=== PATIENT | female | born 1965 | race African-American/Black ===

== ENCOUNTER 2017-08-23 19:04 | Emergency (ER) | payer MEDICARE, MEDICAID ==
[2017-08-23] MEDS ORDERED: ASPIRIN 81 MG TABLET, CHEWABLE PO ONE (19:56)
[2017-08-23] MEDS ORDERED: FAMOTIDINE 20 MG TABLET PO ONE (20:20)
[2017-08-23 20:25] LABS: ABSOLUTE BASOPHILS # (AUTO) 0.1 10^3/uL (0.0-0.2); ABSOLUTE EOSINOPHILS # (AUTO) 0.6 10^3/uL (0.0-0.6); ABSOLUTE LYMPHOCYTES (AUTO) 2.7 10^3/uL (0.5-4.7); ABSOLUTE MONOCYTES (AUTO) 0.5 10^3/uL (0.1-1.4); EOSINOPHILS % (AUTO) 7.6 % (0-6); HEMATOCRIT 36.9 % (36.0-47.0); HEMOGLOBIN 12.1 g/dL (12.0-15.5); HGB HCT DIFFERENCE -0.6; LYMPHOCYTES % (AUTO) 34.4 % (13-45); MEAN CORPUSCULAR HEMOGLOBIN 28.7 pg (27.0-33.4); MEAN CORPUSCULAR HGB CONC 32.8 g/dL (32.0-36.0); MEAN CORPUSCULAR VOLUME 88 fl (80-97); MONOCYTES % (AUTO) 6.6 % (3-13); RED BLOOD COUNT 4.21 10^6/uL (3.72-5.28); RED CELL DISTRIBUTION WIDTH 13.4 % (11.5-14.0); SEGMENTED NEUTROPHILS % (AUTO) 50.4 % (42-78)
--- NOTE | 2017-08-23 20:26 | ER Document Report ---
ED General - General Chief Complaint: Chest Pain > 30 Stated Complaint: CHEST PAIN Time Seen by Provider: 08/23/17 19:51 Notes: Patient is a 52-year-old female that comes emergency department with several complaints. First complaint is pain in the center of her chest extending down to her left upper abdomen, intermittent, sharp, started yesterday. She denies that this is worse with food, she does report intermittent nausea, she states it also feels worse with deep breaths. She denies trauma, fever, cough, history of the same. She also states that her left leg has been swollen for the past several months, this has not been evaluated previously. She denies injury to the area previously. Past medical history of hypertension, she takes propanolol for an arrhythmia, she denies history of [place] or blood clot, she does not smoke or drink alcohol, she states she had a negative stress test to go. Her mother does have a history of blood clots. TRAVEL OUTSIDE OF THE [place] IN LAST 30 DAYS: No - Related Data Allergies/Adverse Reactions: enalapril [Enalapril] Allergy (Severe, Verified 10/31/15 10:52) swelling Past Medical History - General Information source: Patient - Social History Smoking Status: Never Smoker Frequency of alcohol use: None Drug Abuse: None Lives with: Family Family History: Reviewed & Not Pertinent Patient has suicidal ideation: No Patient has homicidal ideation: No - Past Medical History Cardiac Medical History: Reports: Hx Hypercholesterolemia, Hx Hypertension - on meds Denies: Hx Coronary Artery Disease, Hx Heart Attack Pulmonary Medical History: Reports: Hx COPD - hypersensitive pneumonitis/ inhalers Denies: Hx Asthma, Hx Bronchitis, Hx Pneumonia Neurological Medical History: Denies: Hx Cerebrovascular Accident, Hx Seizures Renal/ Medical History: Denies: Hx Peritoneal Dialysis Musculoskeltal Medical History: Denies Hx Arthritis Past Surgical History: Reports: Hx Oral Surgery - wisdom teeth, Hx Tubal Ligation - Immunizations Hx Diphtheria, Pertussis, Tetanus Vaccination: No Hx Pneumococcal Vaccination: 07/20/14 Review of Systems - Review of Systems Constitutional: No symptoms reported EENT: No symptoms reported Cardiovascular: See HPI Respiratory: See HPI Gastrointestinal: See HPI Genitourinary: No symptoms reported Female Genitourinary: No symptoms reported Musculoskeletal: No symptoms reported Skin: No symptoms reported Hematologic/Lymphatic: No symptoms reported Neurological/Psychological: No symptoms reported Physical Exam - Vital signs Vitals: Temp Pulse Resp BP Pulse Ox 98.5 F 82 16 157/91 H 97 08/23/17 19:20 08/23/17 19:20 08/23/17 19:20 08/23/17 19:20 08/23/17 19:20 Interpretation: Normal - General General appearance: Appears well, Alert In distress: None - HEENT Head: Normocephalic, Atraumatic Eyes: Normal Pupils: PERRL - Respiratory Respiratory status: No respiratory distress Chest status: Nontender Breath sounds: Normal Chest palpation: Normal - Cardiovascular Rhythm: Regular. No: Tachycardia Heart sounds: Normal auscultation, S1 appreciated, S2 appreciated Murmur: No - Abdominal Inspection: Normal Distension: No distension Bowel sounds: Normal Tenderness: Tender - Left upper quadrant pain on exam, reproducible, no severe tenderness, rigidity, or guarding. Organomegaly: No organomegaly - Back Back: Normal, Nontender. No: Tender - Extremities General upper extremity: Normal inspection, Nontender, Normal color, Normal ROM , Normal temperature General lower extremity: Normal inspection, Nontender, Normal color, Normal ROM , Normal temperature, Normal weight bearing. No: Nikhil's sign - Neurological Neuro grossly intact: Yes Cognition: Normal Orientation: AAOx4 Bullock Coma Scale Eye Opening: Spontaneous John Paul Coma Scale Verbal: Oriented Bullock Coma Scale Motor: Obeys Commands Bullock Coma Scale Total: 15 Speech: Normal Motor strength normal: LUE, RUE, LLE, RLE Sensory: Normal - Psychological Associated symptoms: Normal affect, Normal mood - Skin Skin Temperature: Warm Skin Moisture: Dry Skin Color: Normal Course - Re-evaluation Re-evalutation: Patient has left upper quadrant pain on examination. She is well-appearing, alert, clear lungs, soft abdomen otherwise. She does have mild lower extremity swelling in the left leg with good pulses and normal exam otherwise. Doppler was performed, shows no DVT or other abnormality on initial report. EKG showing left bundle branch block which is unchanged from prior, no acute changes. Chest x-ray unremarkable, CBC, chemistry, cardiac enzymes cycled and unremarkable. Patient is requesting to leave. Her heart score is 3. D-dimer is not elevated. Discussed workup in detail with patient. Based on her examination I actually feel this is gastrointestinal in nature. Patient states that she is taking 800 mg of ibuprofen twice a day for general body aches. Recommended she stop this, providing antacid therapy, patient states she will follow-up very closely with primary care for additional evaluation (in regards to both gastrointestinal and chest symptoms), states she will return if she develops chest pain, shortness of breath, or any other worsening symptoms. She is currently asymptomatic. Patient discharged home with family. - Vital Signs Vital signs: Temp Pulse Resp BP Pulse Ox 98.5 F 82 20 149/99 H 99 08/23/17 19:20 08/23/17 19:20 08/24/17 01:01 08/24/17 01:01 08/24/17 01:01 - Laboratory Result Diagrams: 08/23/17 20:03 08/23/17 20:03 Laboratory results interpreted by me: 08/23/17 20:03 Eosinophils % 7.6 H Discharge - Discharge Clinical Impression: Left upper quadrant pain Chest pain Qualifiers: Chest pain type: unspecified Qualified Code(s): R07.9 - Chest pain, unspecified Condition: Stable Disposition: HOME, SELF-CARE Additional Instructions: Your workup today does not show any concerning findings. Your symptoms and examination are very suggestive of a gastrointestinal source. I recommend avoiding taking any NSAIDs such as ibuprofen until symptoms completely resolved , take prescribed medications as directed, avoid spicy food, avoid high levels of caffeine. Follow-up closely with your primary care provider for additional evaluation and management. Return immediately if you worsen in anyway including vomiting, vomiting blood, black stools, difficulty breathing, worsening pain, or any other concerning symptoms. Prescriptions: Famotidine [Pepcid 20 mg Tablet] 20 mg PO BID #14 tablet Sucralfate [Carafate 1 gm Tablet] 1 gm PO QID #20 tablet Referrals: ANAIS CHAIDEZ MD [Primary Care Provider] - Follow up as needed
--- NOTE | 2017-08-23 20:37 | RADIOLOGY REPORT (SQ) ---
EXAM DESCRIPTION: CHEST SINGLE VIEW COMPLETED DATE/TIME: 08/23/2017 8:30 pm REASON FOR STUDY: pleuritic chest pain COMPARISON: None. NUMBER OF VIEWS: One view. TECHNIQUE: Single frontal radiographic view of the chest acquired. LIMITATIONS: None. FINDINGS: LUNGS AND PLEURA: No opacities, masses or pneumothorax. No pleural effusion. MEDIASTINUM AND HILAR STRUCTURES: No masses. Contour normal. HEART AND VASCULAR STRUCTURES: Heart enlarged without failure. Normal vasculature. BONES: No acute findings. HARDWARE: None in the chest. OTHER: No other significant finding. IMPRESSION: HEART ENLARGED WITHOUT FAILURE. NO OTHER SIGNIFICANT RADIOGRAPHIC FINDING IN THE CHEST. TECHNICAL DOCUMENTATION: JOB ID: [id number] [employer]- All Rights Reserved
[2017-08-23 20:49] LABS: ALANINE AMINOTRANSFERASE 33 U/L (9-52); ALBUMIN 3.8 g/dL (3.5-5.0); ALKALINE PHOSPHATASE 110 U/L (38-126); ANION GAP 11 (5-19); ASPARTATE AMINO TRANSFERASE 22 U/L (14-36); BILIRUBIN,DIRECT 0.4 mg/dL (0.0-0.4); BILIRUBIN,TOTAL 0.5 mg/dL (0.2-1.3); BLOOD UREA NITROGEN 12 mg/dL (7-20); CALCIUM 9.3 mg/dL (8.4-10.2); CARBON DIOXIDE 28 mmol/L (22-30); CHLORIDE 105 mmol/L (98-107); CREATINE KINASE 69 U/L (30-135); CREATININE RESULT 0.86 mg/dL (0.52-1.25); GLUCOSE 95 mg/dL (75-110); POTASSIUM 4.2 mmol/L (3.6-5.0); SODIUM 143.5 mmol/L (137-145); TOTAL PROTEIN 7.2 g/dL (6.3-8.2)
--- NOTE | 2017-08-23 20:49 | ER Document Report ---
ED Medical Screen (RME) - General Mode of Arrival: Ambulatory Information source: Patient TRAVEL OUTSIDE OF THE [place] IN LAST 30 DAYS: No <SIOBHAN HALL - Last Filed: 08/23/17 20:39> <SAGRARIO HICKS - Last Filed: 08/23/17 20:54> - General Chief Complaint: Chest Pain > 30 Stated Complaint: CHEST PAIN Time Seen by Provider: 08/23/17 19:51 Notes: Patient is a 52 year old female with a history of a decreased dejection fraction presents to the emergency department complaining of chest pain onset yesterday. Patient describes the pain as as stabbing that is exacerbated during deep breathing. Patient has associated symptoms of nausea and pain in the back of her neck onset tonight. Patient denies vomiting, cough, or shortness of breath. (SIOBHAN HALL) - Related Data Allergies/Adverse Reactions: enalapril [Enalapril] Allergy (Severe, Verified 10/31/15 10:52) swelling Past Medical History - General Information source: Patient - Social History Cigarette use (# per day): No Chew tobacco use (# tins/day): No Frequency of alcohol use: None Drug Abuse: None - Past Medical History Cardiac Medical History: Reports: Hx Hypercholesterolemia, Hx Hypertension - on meds Denies: Hx Coronary Artery Disease, Hx Heart Attack Pulmonary Medical History: Reports: Hx COPD - hypersensitive pneumonitis/ inhalers Denies: Hx Asthma, Hx Bronchitis, Hx Pneumonia Neurological Medical History: Denies: Hx Cerebrovascular Accident, Hx Seizures Renal/ Medical History: Denies: Hx Peritoneal Dialysis Musculoskeltal Medical History: Denies Hx Arthritis Past Surgical History: Reports: Hx Oral Surgery - wisdom teeth, Hx Tubal Ligation - Immunizations Hx Diphtheria, Pertussis, Tetanus Vaccination: No <SIOBHAN HALL - Last Filed: 08/23/17 20:39> Review of Systems - Review of Systems Constitutional: No symptoms reported EENT: No symptoms reported Cardiovascular: See HPI, Chest pain Respiratory: No symptoms reported Gastrointestinal: See HPI, Nausea Genitourinary: No symptoms reported Female Genitourinary: No symptoms reported Musculoskeletal: See HPI, Neck pain Skin: No symptoms reported Hematologic/Lymphatic: No symptoms reported Neurological/Psychological: No symptoms reported -: Yes All other systems reviewed and negative <SIOBHAN HALL - Last Filed: 08/23/17 20:39> Physical Exam - General General appearance: Appears well, Alert In distress: None - HEENT Head: Normocephalic, Atraumatic Pupils: PERRL - Respiratory Respiratory status: No respiratory distress Chest status: Nontender Breath sounds: Normal - Cardiovascular Rhythm: Regular Heart sounds: Normal auscultation Murmur: No Friction rub: No Gallop: None auscultated - Extremities General upper extremity: Normal ROM General lower extremity: Normal ROM - Psychological Associated symptoms: Normal affect, Normal mood - Skin Skin Temperature: Warm Skin Moisture: Dry <SIOBHAN HALL - Last Filed: 08/23/17 20:39> - Vital signs Vitals: Temp Pulse Resp BP Pulse Ox 98.5 F 82 16 157/91 H 97 08/23/17 19:20 08/23/17 19:20 08/23/17 19:20 08/23/17 19:20 08/23/17 19:20 Course - Laboratory Result Diagrams: 08/23/17 20:03 08/23/17 20:03 <SIOBHAN HALL - Last Filed: 08/23/17 20:39> - Laboratory Result Diagrams: 08/23/17 20:03 08/23/17 20:03 <SAGRARIO HICKS - Last Filed: 08/23/17 20:54> - Vital Signs Vital signs: Temp Pulse Resp BP Pulse Ox 98.5 F 82 16 157/91 H 97 08/23/17 19:20 08/23/17 19:20 08/23/17 19:20 08/23/17 19:20 08/23/17 19:20 - Laboratory Laboratory results interpreted by me: 08/23/17 20:03 Eosinophils % 7.6 H Doctor's Discharge <SIOBHAN HALL - Last Filed: 08/23/17 20:39> <SAGRARIO HICKS - Last Filed: 08/23/17 20:54> - Discharge Referrals: ANAIS CHAIDEZ MD [Primary Care Provider] - Follow up as needed Scribe Documentation - Scribe Written by Scribe:: Lucia Stafford, 08/23/2017 19:52 acting as scribe for :: Russell <SIOBHAN HALL - Last Filed: 08/23/17 20:39>
[2017-08-23 20:57] LABS: CREATINE KINASE MB 0.68 ng/mL (<4.55)
[2017-08-23 20:58] LABS: TROPONIN I < 0.012 ng/mL
[2017-08-23] MEDS ORDERED: ONDANSETRON HCL INJ/PF 4 MG/2 ML SDV IV ONE (22:42)
[2017-08-23] MEDS ORDERED: MORPHINE SULFATE 10 MG/ML INJ IV ONE (22:42)
--- NOTE | 2017-08-23 22:48 | EKG REPORT ---
SEVERITY:- ABNORMAL ECG - SINUS RHYTHM LEFT BUNDLE BRANCH BLOCK : Confirmed by: Jay Burkett 23-Aug-2017 22:47:01
[2017-08-24] MEDS ORDERED: HYDROCODONE/ACETAMINOPHEN 5-325 MG 6 TAB/DSPK PO PRN (01:08)
[2017-08-24] MEDS ORDERED: SUCRALFATE 1 GM TABLET PO ONE (01:08)
[2017-08-24 01:40] VITALS: BP 149/99
--- NOTE | 2017-08-24 08:35 | XCELERA REPORT ---
[address] [address] Lower Extremity Venous Evaluation Name: REJI CELIS Age: 52 yrs Gender: Female : 1965 Patient Status: Emergency Patient Location: ER Study Date: 08/23/2017 09:54 PM Procedure: Color flow and duplex imaging of the veins of the left lower extremity as well as the right Common Femoral vein. Reason For Study: LLE swelling Ordering Physician: SHAYE MALONE Performed By: Laquita Mcfadden Right Sided Venous Evaluation The right common femoral vein is fully compressible. Spontaneous and phasic flow is present in the right common femoral vein. Left Sided Venous Evaluation Normal vessel filling wall to wall, compression and augmentation as well as Colour flow down to the infrageniculate veins. Interpretation Summary No duplex evidence of DVT or obstruction in the left lower extremity nor in the right Common Femoral vein. : SHAYE MALONE > Aiden Tenorio
== END 2017-08-24 01:40 | disposition home or self-care (01) ==
LOC: ER 19:04
DX: R10.12 Left upper quadrant pain (principal); R07.9 Chest pain, unspecified; R11.0 Nausea; M54.2 Cervicalgia
CPT/HCPCS: 93005; 99285; 96374; 96375; 36415; 82553; 82550; 83690; 85025; 80053; 84484; 85379; 93971 ×2; 71010; 93010; A9270 ×4; J2270; J2405

== ENCOUNTER 2018-02-22 09:44 | Observation (INO) | payer MEDICARE, MEDICAID ==
[2018-02-22] MEDS ORDERED: ASPIRIN 81 MG TABLET, CHEWABLE PO ONE (10:09)
--- NOTE | 2018-02-22 10:14 | ER Document Report ---
ED Medical Screen (RME) - General Chief Complaint: Chest Tightness Stated Complaint: CHEST TIGHTNESS Time Seen by Provider: 02/22/18 10:02 Notes: 52-year-old hypertensive female presents emergency department complaining of chest tightness since this morning and left arm tingling since last evening associated with a right-sided headache and neck pain for the past 3 weeks. Father of cardiac disease and mother had her first stroke in her late 40s early 50s. Patient has a history of SVT. TRAVEL OUTSIDE OF THE [place] IN LAST 30 DAYS: No - Related Data Allergies/Adverse Reactions: enalapril [Enalapril] Allergy (Severe, Verified 02/22/18 10:01) swelling Past Medical History - General Information source: Patient - Social History Cigarette use (# per day): No Chew tobacco use (# tins/day): No Frequency of alcohol use: None Drug Abuse: None Family history: CAD, CVA - Past Medical History Cardiac Medical History: Reports: Hx Hypercholesterolemia, Hx Hypertension - on meds Denies: Hx Coronary Artery Disease, Hx Heart Attack Pulmonary Medical History: Reports: Hx COPD - hypersensitive pneumonitis/ inhalers Denies: Hx Asthma, Hx Bronchitis, Hx Pneumonia Neurological Medical History: Denies: Hx Cerebrovascular Accident, Hx Seizures Renal/ Medical History: Denies: Hx Peritoneal Dialysis Musculoskeltal Medical History: Denies Hx Arthritis Past Surgical History: Reports: Hx Oral Surgery - wisdom teeth, Hx Tubal Ligation - Immunizations Hx Diphtheria, Pertussis, Tetanus Vaccination: No Review of Systems - Review of Systems Constitutional: No symptoms reported EENT: No symptoms reported Cardiovascular: See HPI - Chest tightness Respiratory: See HPI, Short of breath Gastrointestinal: See HPI - Patient feels like her chest tightness would be better if she could just burp. Musculoskeletal: See HPI - Left arm tingling. Neurological/Psychological: See HPI Physical Exam - Vital signs Vitals: Temp Pulse Resp BP Pulse Ox 98.1 F 77 18 145/86 H 95 02/22/18 09:54 02/22/18 09:54 02/22/18 09:54 02/22/18 09:54 02/22/18 09:54 Interpretation: Hypertensive - General General appearance: Appears well, Alert Notes: Obese - HEENT Head: Normocephalic, Atraumatic - Respiratory Respiratory status: No respiratory distress Chest status: Nontender Breath sounds: Normal Chest palpation: Normal - Cardiovascular Rhythm: Regular Heart sounds: Normal auscultation Murmur: No Course - Vital Signs Vital signs: Temp Pulse Resp BP Pulse Ox 98.1 F 77 18 145/86 H 95 02/22/18 09:54 02/22/18 09:54 02/22/18 09:54 02/22/18 09:54 02/22/18 09:54
[2018-02-22] MEDS: NITROGLYCERIN 0.4 MG/TAB 25 TAB/BOTTLE SL PRN ×2 (10:33→10:45)
[2018-02-22] MEDS ORDERED: ACETAMINOPHEN 325 MG TABLET PO ONE ×2 (10:38→16:51)
--- NOTE | 2018-02-22 10:42 | ER Document Report ---
ED Cardiac - General Chief Complaint: Chest Tightness Stated Complaint: CHEST TIGHTNESS Time Seen by Provider: 02/22/18 10:02 Mode of Arrival: Ambulatory Information source: Patient Notes: This is a 52-year-old female with a history of SVT, hypertension who presents to the emergency room with retrosternal chest pressure radiating down the left arm. She states she did not feel well yesterday and started having the tightness this morning. She does report slight headache but nothing out of the ordinary for her. She denies shortness of breath. TRAVEL OUTSIDE OF THE [place] IN LAST 30 DAYS: No - HPI Patient complains to provider of: Chest tightness Use of: denies: Alcohol, Amphetamines, Bath salts, Caffeine, Cocaine, Decongestants, Other Was the onset of pain: Gradual Is the pain a: New problem Chest pain location: Substernal Chest pain radiation location: Left arm Severity now: Mild Severity at worst: Moderate Pain level currently: 1 Chest pain precipitating factors: At Rest Cardiac risk factors: Hypertension, + Family history Positive cardiac history: Yes Associated symptoms: denies: Back pain, Hypotension, Jaw pain, Lightheaded Exacerbated by: Denies Relieved by: Nothing Similar symptoms previously: No Recently seen / treated by doctor: No - Related Data Allergies/Adverse Reactions: enalapril [Enalapril] Allergy (Severe, Verified 02/22/18 10:01) swelling Past Medical History - General Information source: Patient - Social History Smoking Status: Never Smoker Cigarette use (# per day): No Chew tobacco use (# tins/day): No Frequency of alcohol use: None Drug Abuse: None Lives with: Family Family History: CAD Patient has suicidal ideation: No Patient has homicidal ideation: No - Past Medical History Cardiac Medical History: Reports: Hx Hypercholesterolemia, Hx Hypertension - on meds Denies: Hx Coronary Artery Disease, Hx Heart Attack Pulmonary Medical History: Reports: Hx COPD - hypersensitive pneumonitis/ inhalers Denies: Hx Asthma, Hx Bronchitis, Hx Pneumonia Neurological Medical History: Denies: Hx Cerebrovascular Accident, Hx Seizures Renal/ Medical History: Denies: Hx Peritoneal Dialysis Musculoskeltal Medical History: Denies Hx Arthritis Past Surgical History: Reports: Hx Oral Surgery - wisdom teeth, Hx Tubal Ligation - Immunizations Hx Diphtheria, Pertussis, Tetanus Vaccination: No Hx Pneumococcal Vaccination: 07/20/14 Review of Systems - Review of Systems Constitutional: No symptoms reported EENT: No symptoms reported Cardiovascular: See HPI Respiratory: No symptoms reported Gastrointestinal: No symptoms reported Genitourinary: No symptoms reported Female Genitourinary: No symptoms reported Musculoskeletal: No symptoms reported Skin: No symptoms reported Hematologic/Lymphatic: No symptoms reported Neurological/Psychological: Headaches Physical Exam - Vital signs Vitals: Temp Pulse Resp BP Pulse Ox 98.1 F 77 18 145/86 H 95 02/22/18 09:54 02/22/18 09:54 02/22/18 09:54 02/22/18 09:54 02/22/18 09:54 Notes: Physical exam: GENERAL: 52-year-old female, alert and oriented 3, no acute distress HEAD: Atraumatic, normocephalic. EYES: Pupils equal round and reactive to light, extraocular movements intact, sclera anicteric, conjunctiva are normal. ENT: TMs normal, nares patent, oropharynx clear without exudates. Moist mucous membranes. NECK: Normal range of motion, supple without obvious mass or JVD. LUNGS: Breath sounds clear to auscultation bilaterally and equal. No wheezes rales or rhonchi. HEART: Regular rate and rhythm without murmurs, rubs or gallops. ABDOMEN: Soft, normoactive bowel sounds. No tenderness to palpation. No guarding, no rebound. No masses appreciated. EXTREMITIES: Normal range of motion, no pitting or edema. No clubbing or cyanosis. NEUROLOGICAL: Cranial nerves II through XII grossly intact. Normal speech, moving all extremities. PSYCH: Normal mood, normal affect. SKIN: Warm, Dry, normal turgor, no rashes or lesions noted. Course - Re-evaluation Re-evalutation: 02/22/18 12:03 Note: Patient currently denies any chest pain. She had noted that over the last several days there was swelling more in the left lower extremity so a lower extremity Doppler was done and shows no evidence of DVT. Her first set of enzymes are negative. - Vital Signs Vital signs: Temp Pulse Resp BP Pulse Ox 98.1 F 77 18 145/86 H 95 02/22/18 09:54 02/22/18 09:54 02/22/18 09:54 02/22/18 09:54 02/22/18 09:54 - Laboratory Result Diagrams: 02/22/18 10:15 02/22/18 10:15 Laboratory results interpreted by me: 02/22/18 02/22/18 10:15 10:15 Eosinophils % 8.7 H Sodium 145.3 H - Diagnostic Test Radiology reviewed: Image reviewed, Reports reviewed - Chest x-ray shows cardiomegaly - EKG Interpretation by Me Rhythm: NSR - EKG shows normal sinus rhythm with a ventricular rate of 79. 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 The patient does have a history of a left bundle branch block and there is no significant changes in the EKG compared to August 23, 2017. Discharge - Discharge Clinical Impression: Chest pain Condition: Stable Disposition: ADMITTED OBSERVATION Admitting Provider: Hospitalist - Dr Maricruz Horan Unit Admitted: Telemetry Referrals: ANAIS CHAIDEZ MD [Primary Care Provider] - Follow up as needed
[2018-02-22 10:51] LABS: ABSOLUTE EOSINOPHILS # (AUTO) 0.5 10^3/uL (0.0-0.6); ABSOLUTE LYMPHOCYTES (AUTO) 1.9 10^3/uL (0.5-4.7); ABSOLUTE MONOCYTES (AUTO) 0.5 10^3/uL (0.1-1.4); ABSOLUTE NEUT (AUTO) 3.2 10^3/uL (1.7-8.2); BASOPHILS % (AUTO) 0.8 % (0-2); EOSINOPHILS % (AUTO) 8.7 % (0-6); HEMATOCRIT 37.5 % (36.0-47.0); HEMOGLOBIN 12.2 g/dL (12.0-15.5); MEAN CORPUSCULAR HEMOGLOBIN 28.6 pg (27.0-33.4); MEAN CORPUSCULAR HGB CONC 32.5 g/dL (32.0-36.0); MEAN CORPUSCULAR VOLUME 88 fl (80-97); MONOCYTES % (AUTO) 7.7 % (3-13); PLATELET COUNT 306 10^3/uL (150-450); RED BLOOD COUNT 4.27 10^6/uL (3.72-5.28); RED CELL DISTRIBUTION WIDTH 13.3 % (11.5-14.0); SEGMENTED NEUTROPHILS % (AUTO) 51.8 % (42-78); TOTAL CELLS COUNTED % (AUTO) 100 %; WHITE BLOOD COUNT 6.1 10^3/uL (4.0-10.5)
[2018-02-22 11:08] LABS: ALANINE AMINOTRANSFERASE 21 U/L (9-52); ALBUMIN 3.7 g/dL (3.5-5.0); ALKALINE PHOSPHATASE 106 U/L (38-126); ANION GAP 12 (5-19); ASPARTATE AMINO TRANSFERASE 23 U/L (14-36); BILIRUBIN,DIRECT 0.3 mg/dL (0.0-0.4); BILIRUBIN,TOTAL 0.4 mg/dL (0.2-1.3); BLOOD UREA NITROGEN 13 mg/dL (7-20); CALCIUM 9.5 mg/dL (8.4-10.2); CARBON DIOXIDE 29 mmol/L (22-30); CHLORIDE 104 mmol/L (98-107); CREATINE KINASE 73 U/L (30-135); GLUCOSE 100 mg/dL (75-110); POTASSIUM 4.5 mmol/L (3.6-5.0); SODIUM 145.3 mmol/L (137-145); TOTAL PROTEIN 7.2 g/dL (6.3-8.2)
[2018-02-22 11:18] LABS: CREATINE KINASE MB 0.68 ng/mL (<4.55)
[2018-02-22 11:26] LABS: TROPONIN I < 0.012 ng/mL
--- NOTE | 2018-02-22 11:27 | RADIOLOGY REPORT (SQ) ---
EXAM DESCRIPTION: CHEST SINGLE VIEW COMPLETED DATE/TIME: 02/22/2018 11:13 am REASON FOR STUDY: chest tightness COMPARISON: 08/23/2017. NUMBER OF VIEWS: One view. TECHNIQUE: Single frontal radiographic view of the chest acquired. LIMITATIONS: None. FINDINGS: LUNGS AND PLEURA: No opacities, masses or pneumothorax. No pleural effusion. MEDIASTINUM AND HILAR STRUCTURES: No masses. Contour normal. HEART AND VASCULAR STRUCTURES: Heart enlarged without failure. Normal vasculature. BONES: No acute findings. HARDWARE: None in the chest. OTHER: No other significant finding. IMPRESSION: HEART ENLARGED WITHOUT FAILURE. NO OTHER SIGNIFICANT RADIOGRAPHIC FINDING IN THE CHEST. TECHNICAL DOCUMENTATION: JOB ID: [id number] [employer]- All Rights Reserved Reading location - IP/workstation name: [email or web address]
[2018-02-22] MEDS ORDERED: MORPHINE SULFATE 10 MG/ML INJ IV ONE (11:59)
[2018-02-22] MEDS ORDERED: ONDANSETRON HCL INJ/PF 4 MG/2 ML SDV IV ONE (11:59)
[2018-02-22] MEDS ORDERED: NITROGLYCERIN 2% OINTMENT 1 GM PACKET TP ONE (12:02)
--- NOTE | 2018-02-22 13:08 | XCELERA REPORT ---
[address] [address] Lower Extremity Venous Evaluation Name: REJI MARTIN Age: 52 yrs Gender: Female : 1965 Patient Status: Emergency Patient Location: ER Study Date: 02/22/2018 11:16 AM Procedure: Color flow and duplex imaging of the veins of the left lower extremity as well as the right Common Femoral vein. Reason For Study: lle swelling Ordering Physician: KARAN ROMERO Performed By: Eric Daniels Right Sided Venous Evaluation The right common femoral vein is fully compressible. Spontaneous and phasic flow is present in the right common femoral vein. Left Sided Venous Evaluation Normal vessel filling wall to wall, compression and augmentation as well as Colour flow down to the infrageniculate veins. Interpretation Summary No duplex evidence of DVT or obstruction in the left lower extremity nor in the right Common Femoral vein. : KARAN ROMERO [place]
[2018-02-22] MEDS ORDERED: ALBUTEROL SULFATE HFA (90 MCG/PUFF) 8 GM MDI (1 MDI/ER DISP) IH PRN (13:26)
[2018-02-22] MEDS ORDERED: ALBUTEROL SULFATE HFA (90 MCG/PUFF) 200 PUFF/8.5 GM MDI IH PRN (13:58)
[2018-02-22] MEDS: HYDRALAZINE HCL 25 MG TABLET PO SCH ×2 (16:54→22:40)
[2018-02-22] MEDS: ONDANSETRON 4 MG TAB.RAPDIS PO PRN ×2 (16:56→22:14)
--- NOTE | 2018-02-22 17:28 | PDOC H&P ---
History of Present Illness Admission Date/PCP: 02/22/18 12:40 ANAIS CHAIDEZ MD History of Present Illness: REJI MARTIN is a 52 year old female who presents with a ~ 2hr complaint of chest tightness and LUE tingling. The patient states that her tightness was located in the middle of her chest, was constant in nature. She experienced an associated PARTIDA and blurry vision at the time of the event, and attempted to " make herself belch" in order to try and relieve symptoms. The patient was BIBA and given 2 SL Nitroglycerin tablets, which relieved her chest pain. She was also given 325mg ASA. Her EKG showed a LBBB, which is not new when compared to an EKG from 2017. Her initial troponin was < 0.012. Following the administration of the SL nitroglycerin the patient complained of a 5/5 headache , for which she was given 975 mg tylenol. Her VS upon arrival were relatively normal BP 145/86 P 77 T 98.1 RR 17 SPO2 95% on room air. PMH includes HTN, CHF, migraines, hypersensitive pneumonitis SOFTWARE QUALITY MANAGER: Dr. Knapp ([facility]) FITNESS SUPERVISOR: Dr. Carmen ([facility]) PMD: [facility] Upon assessment the patient is resting comfortably in bed on room air. She denied chest pain or tightness, shortness of breath, dizziness, PARTIDA, or nausea. Her lungs were clear to auscultation. +S1 S2. Pitting edema (+1) to bilateral lower extremities, which the patient states is chronic. She states that her edema is "better than usual." Additionally, the patient states she was diagnosed with heart failure approximately 2 months ago but her last ECHOcardiogram was "years ago." Past Medical History Cardiac Medical History: Reports: Congestive Heart Failure, Hyperlipidema, Hypertension - on meds Denies: Coronary Artery Disease, Myocardial Infarction Pulmonary Medical History: Reports: Chronic Obstructive Pulmonary Disease (COPD ) - hypersensitive pneumonitis/inhalers Denies: Asthma, Bronchitis, Pneumonia Neurological Medical History: Reports: Migraine Denies: Seizures Musculoskeltal Medical History: Denies: Arthritis Hematology: Reports: Anemia - hx of Past Surgical History Past Surgical History: Reports: Tubal Ligation, Other - OPEN LUNG BIOPSY Social History Information Source: Patient Lives with: Family Smoking Status: Never Smoker Frequency of Alcohol Use: None Hx Recreational Drug Use: No Drugs: None Hx Prescription Drug Abuse: No - Advance Directive Resuscitation Status: Full Code Family History Family History: CAD, CVA, DM Parental Family History Reviewed: Yes Children Family History Reviewed: Yes Sibling(s) Family History Reviewed.: Yes Medication/Allergy Home Medications: Budesonide/Formoterol Fumarate [Symbicort Hfa 160-4.5 Mcg Inhaler 6 gm] 1 puff IH DAILY 10/31/15 Albuterol Sulfate [Ventolin HFA MDI 18 GM] 2 puff IH Q4HP PRN 02/22/18 Ergocalciferol (Vitamin D2) [Drisdol 50,000 Unit (1.25MG) Capsule] 50,000 unit PO MO@1000 02/22/18 Furosemide [Furosemide] 80 mg PO DAILY 02/22/18 Hydralazine HCl [Apresoline 25 mg Tablet] 25 mg PO Q8 02/22/18 Ibuprofen [Motrin 800 mg Tablet] 800 mg PO Q8HP PRN 02/22/18 Propafenone HCl [Rythmol 150 Mg Tablet] 150 mg PO DAILY 02/22/18 Allergies/Adverse Reactions: enalapril [Enalapril] Allergy (Severe, Verified 02/22/18 10:01) swelling Review of Systems All systems: reviewed and no additional remarkable complaints except as stated Physical Exam Vital Signs: Temp Pulse Resp BP Pulse Ox 98.1 F 68 16 139/85 H 99 02/22/18 13:34 02/22/18 13:34 02/22/18 13:34 02/22/18 13:34 02/22/18 13:34 Intake & Output 02/21/18 02/22/18 02/23/18 06:59 06:59 06:59 Intake Total 3 Balance 3 Weight 129.1 kg General appearance: PRESENT: no acute distress Eye exam: PRESENT: conjunctiva pink, PERRLA Mouth exam: PRESENT: moist Neck exam: PRESENT: full ROM Respiratory exam: PRESENT: clear to auscultation dennys, symmetrical, unlabored Cardiovascular exam: PRESENT: +S1, +S2, other - LBBB - CHRONIC Pulses: PRESENT: normal radial pulses, normal dorsalis pedis pul Vascular exam: PRESENT: normal capillary refill GI/Abdominal exam: PRESENT: ascites Rectal exam: PRESENT: deferred Extremities exam: PRESENT: full ROM, pedal edema, +1 edema - BILATERAL LOWER EXTREMITIES Musculoskeletal exam: PRESENT: ambulatory, full ROM Neurological exam: PRESENT: alert, awake, oriented to person, oriented to place , oriented to time, oriented to situation Psychiatric exam: PRESENT: appropriate affect Skin exam: PRESENT: dry, intact, normal color Results Laboratory Results: 02/22/18 15:40 Troponin I 0.270 Impressions: Chest X-Ray 02/22/18 10:12 IMPRESSION: HEART ENLARGED WITHOUT FAILURE. NO OTHER SIGNIFICANT RADIOGRAPHIC FINDING IN THE CHEST. Status: Imported from PACS Assessment & Plan - Diagnosis (1) Chest pain Qualifiers: Chest pain type: unspecified Qualified Code(s): R07.9 - Chest pain, unspecified Is this a current diagnosis for this admission?: Yes Plan: Acute onset of chest tightness and tingling in LUE BIBA and administered 2 SL Nitro tablets, symptoms relieved after medication administration Concerning for cardiac chest pain, cardiology consulted Initial troponin < 0.012 continue to trend x 2 Daily ASA 81mg PO Initiate statin therapy Daily EKGs Chest xray shows cardiomegaly, no other pertinent pathology Consider non-cardiac causes of chest pain: anxiety, GERD, muscle pain (2) HTN (hypertension) Qualifiers: Hypertension type: unspecified Qualified Code(s): I10 - Essential (primary ) hypertension Is this a current diagnosis for this admission?: Yes Plan: Patient endorses a history of HTN Resume home dose of amlodipine Patient has remained relatively NORMOtensive while at [facility] (3) CHF (congestive heart failure) Qualifiers: Heart failure chronicity: chronic Is this a current diagnosis for this admission?: Yes Plan: Patient states she was recently diagnosed with CHF "as a result of her leg edema." The patient states her last ECHO was "years ago" +1 pitting edema in bilateral lower extremities The patient denied recent weight gain, states that the swelling in her legs is "better than usual" Continue home dose lasix If patient continues to be asymptomatic, will plan for outpatient ECHO. If the patient becomes symptomatic again, will plan for inpatient ECHO Aspirin and statin therapy (4) Headache Qualifiers: Headache chronicity pattern: acute headache Is this a current diagnosis for this admission?: Yes Plan: The patient c/o PARTIDA following administration of SL Nitro 975mg tylenol given in ER and patient endorsed pain relief PRN tylenol for pain (5) Nausea Is this a current diagnosis for this admission?: Yes Plan: Patient endorses a history of nausea related to her symptoms. Denies vomiting. PRN jillian ODT - Time Critical Time spent with patient: 15-24 minutes Medications reviewed and adjusted accordingly: Yes Within: within 48 hours - Inpatient Certification Based on my medical assessment, after consideration of the patient's comorbidities, presenting symptoms, or acuity I expect that the services needed warrant INPATIENT care.: Yes I certify that my determination is in accordance with my understanding of Medicare's requirements for reasonable and necessary INPATIENT services [42 CFR 412.3e].: Yes Medical Necessity: Risk of Complication if Not Cared For in Hospital - Plan Summary Plan Summary: Admit to hospitalist service with cardiology consult
--- NOTE | 2018-02-22 19:08 | PDOC TRANSFER SUMMARY ---
General Admission Date/PCP: 02/22/18 12:40 ANAIS CHAIDEZ MD Admission Date: 02/22/18 Transfer Date: 02/22/18 Accepting Facility: [facility] Accepting Physician: Dr. Telly Dickerson Resuscitation Status: Full Code - Transfer Diagnosis (1) Chest pain Is this a current diagnosis for this admission?: Yes Diagnosis Summary: Acute onset of chest tightness and tingling in LUE BIBA and administered 2 SL Nitro tablets, symptoms relieved after medication administration Concerning for cardiac chest pain, cardiology consulted Initial troponin < 0.012. Repeat 0.29. continue to trend x 2 Initial EKG shows LBBB (long standing, compared to EKG from 2017), repeat EKG shows slight elevation in v1 and v2 Daily ASA 81mg PO Initiate statin therapy Chest xray shows cardiomegaly, no other pertinent pathology Discussed with Dr Dickerson at [facility], plan for transfer (2) HTN (hypertension) Is this a current diagnosis for this admission?: Yes Diagnosis Summary: Patient endorses a history of HTN Resume home dose of amlodipine Patient has remained relatively NORMOtensive while at [facility] (3) CHF (congestive heart failure) Is this a current diagnosis for this admission?: Yes Diagnosis Summary: Patient states she was recently diagnosed with CHF "as a result of her leg edema." The patient states her last ECHO was "years ago" +1 pitting edema in bilateral lower extremities The patient denied recent weight gain, states that the swelling in her legs is "better than usual" Continue home dose lasix If patient continues to be asymptomatic, will plan for outpatient ECHO. If the patient becomes symptomatic again, will plan for inpatient ECHO Aspirin and statin therapy (4) Headache Is this a current diagnosis for this admission?: Yes Diagnosis Summary: The patient c/o PARTIDA following administration of SL Nitro 975mg tylenol given in ER and patient endorsed pain relief PRN tylenol for pain (5) Nausea Is this a current diagnosis for this admission?: Yes Diagnosis Summary: Patient endorses a history of nausea related to her symptoms. Denies vomiting. PRN zofran ODT - Transfer Medications Home Medications: Budesonide/Formoterol Fumarate [Symbicort Hfa 160-4.5 Mcg Inhaler 6 gm] 1 puff IH DAILY 10/31/15 Albuterol Sulfate [Ventolin HFA MDI 18 GM] 2 puff IH Q4HP PRN 02/22/18 Ergocalciferol (Vitamin D2) [Drisdol 50,000 Unit (1.25MG) Capsule] 50,000 unit PO MO@1000 02/22/18 Furosemide [Furosemide] 80 mg PO DAILY 02/22/18 Hydralazine HCl [Apresoline 25 mg Tablet] 25 mg PO Q8 02/22/18 Ibuprofen [Motrin 800 mg Tablet] 800 mg PO Q8HP PRN 02/22/18 Propafenone HCl [Rythmol 150 Mg Tablet] 150 mg PO DAILY 02/22/18 Transfer Medications: Current Medications Albuterol (Proair Hfa Inhalation Aerosol 8.5 Gm Mdi) 2 puff IH Q4HP PRN PRN Reason: SHORTNESS OF BREATH Stop: 03/24/18 13:57 Aspirin (Ecotrin 81 Mg Ec Tablet) 81 mg PO DAILY XAVIER Stop: 03/25/18 09:59 Atorvastatin Calcium (Lipitor 20 Mg Tablet) 20 mg PO QHS XAVIER Stop: 03/24/18 21:59 Budesonide/Formoterol Fumarate (Symbicort Hfa 160-4.5 Mcg Inhaler 6 Gm) 1 puff IH DAILY XAVIER Stop: 03/25/18 09:59 Furosemide (Lasix 80 Mg Tablet) 80 mg PO DAILY XAVIER Stop: 03/25/18 09:59 Hydralazine HCl (Apresoline 25 Mg Tablet) 25 mg PO Q8 XAVIER Stop: 03/24/18 13:59 Last Admin: 02/22/18 16:54 Dose: 25 mg Nitroglycerin (Nitrostat 0.4 Mg (1/150 Gr) Tabs 25/Bottle) 1 tab SL Q5MP PRN PRN Reason: FOR CHEST PAIN Stop: 03/24/18 10:08 Last Admin: 02/22/18 10:45 Dose: 1 tab Ondansetron HCl (Zofran Odt 4 Mg Tablet) 4 mg PO Q6HP PRN PRN Reason: FOR NAUSEA/VOMITING Stop: 03/24/18 16:50 Last Admin: 02/22/18 16:56 Dose: 4 mg Propafenone HCl (Rythmol 150 Mg Tablet) 150 mg PO DAILY XAVIER Stop: 03/25/18 09:59 Sodium Chloride (Saline Flush 2.5 Ml Monoject Prefil Syrin) 2.5 ml IV Q8 XAVIER Stop: 03/24/18 13:59 Last Admin: 02/22/18 16:54 Dose: 2.5 ml - Allergies Allergies/Adverse Reactions: enalapril [Enalapril] Allergy (Severe, Verified 02/22/18 10:01) swelling - Diet/Activity Discharge Diet: Cardiac Discharge Activity: Activity As Tolerated Hospital Course Hospital Course: REJI MARTIN is a 52 year old female who presents with a ~ 2hr complaint of chest tightness and LUE tingling. The patient states that her tightness was located in the middle of her chest, was constant in nature. She experienced an associated PARTIDA and blurry vision at the time of the event, and attempted to " make herself belch" in order to try and relieve symptoms. The patient was BIBA and given 2 SL Nitroglycerin tablets, which relieved her chest pain. She was also given 325mg ASA. Her EKG showed a LBBB, which is not new when compared to an EKG from 2017. Her initial troponin was < 0.012. Following the administration of the SL nitroglycerin the patient complained of a 5/5 headache , for which she was given 975 mg tylenol. Her VS upon arrival were relatively normal BP 145/86 P 77 T 98.1 RR 17 SPO2 95% on room air. Once the patient was moved to [facility], she developed nausea and subsequently started vomiting. Her repeat troponin was 0.29. Fire Chief, Dr. Lemus, was made aware. Repeat EKG showed slight ST elevation (.2mm) in leads V1 and V2. Dr. Lemus recommended transferring the patient to a tertiary facility. [facility] was contacted, Dr. Dickerson accepted the patient. Administered treatment dose Lovenox (1mg/kg) prior to transfer from [facility]. Physical Exam Vital Signs: Temp Pulse Resp BP Pulse Ox 97.8 F 63 12 127/73 H 100 02/22/18 16:48 02/22/18 16:48 02/22/18 16:48 02/22/18 16:48 02/22/18 16:48 Intake & Output 02/21/18 02/22/18 02/23/18 06:59 06:59 06:59 Intake Total 3 Balance 3 Weight 129.1 kg General appearance: PRESENT: mild distress Respiratory exam: PRESENT: clear to auscultation dennys, symmetrical, unlabored Cardiovascular exam: PRESENT: +S1, +S2, other - LBBB (chronic) with new elevation in V1 and V2 Pulses: PRESENT: normal radial pulses, normal dorsalis pedis pul GI/Abdominal exam: PRESENT: normal bowel sounds, soft, other - +nausea and active vomiting. ABSENT: tenderness Rectal exam: PRESENT: deferred Extremities exam: PRESENT: full ROM Musculoskeletal exam: PRESENT: ambulatory, full ROM Neurological exam: PRESENT: alert, awake, oriented to person, oriented to place , oriented to time, oriented to situation Skin exam: PRESENT: intact Results Laboratory Results: 02/22/18 15:40 Troponin I 0.270 Impressions: Chest X-Ray 02/22/18 10:12 IMPRESSION: HEART ENLARGED WITHOUT FAILURE. NO OTHER SIGNIFICANT RADIOGRAPHIC FINDING IN THE CHEST. Status: Imported from PACS Plan Discharge Plan: Transfer to [facility] for possible cardiac catheterization Time Spent: Less than 30 Minutes
[2018-02-22] MEDS ORDERED: ENOXAPARIN SODIUM INJ 150 MG/1 ML DISP.SYRIN SUBCUT ONE (19:15)
--- NOTE | 2018-02-22 20:54 | EKG REPORT ---
SEVERITY:- ABNORMAL ECG - SINUS RHYTHM LEFT BUNDLE BRANCH BLOCK : Confirmed by: Jay Burkett 22-Feb-2018 17:54:09
--- NOTE | 2018-02-22 20:56 | EKG REPORT ---
SEVERITY:- ABNORMAL ECG - SINUS RHYTHM LEFT BUNDLE BRANCH BLOCK : Confirmed by: Jay Burkett 22-Feb-2018 17:55:48
[2018-02-22] MEDS ORDERED: ATORVASTATIN CALCIUM 20 MG TABLET PO SCH (22:00)
[2018-02-22] MEDS ORDERED: FLUTICASONE NASAL SPRAY 50 MCG/SPRY 120 SPRAY/16 GM NASL SCH (22:00)
[2018-02-22 22:09] VITALS: BP 140/69
[2018-02-22] MEDS ORDERED: ONDANSETRON HCL 8 MG TABLET PO ONE (22:30)
[2018-02-23] MEDS ORDERED: ENOXAPARIN SODIUM INJ 150 MG/1 ML DISP.SYRIN SUBCUT SCH (06:00)
[2018-02-23] MEDS ORDERED: ASPIRIN 81 MG TABLET, ENT COATED PO SCH (10:00)
[2018-02-23] MEDS ORDERED: FUROSEMIDE 80 MG TABLET PO SCH (10:00)
[2018-02-23] MEDS ORDERED: BUDESONIDE/FORMOTEROL 160-4.5 MCG 60 PUFF/6 GM MDI IH SCH (10:00)
[2018-02-23] MEDS ORDERED: PROPAFENONE HCL 150 MG TABLET PO SCH (10:00)
== END 2018-02-22 22:15 | disposition short-term general hospital (02) ==
LOC: ER 09:44 → EH 12:40 → 4N 14:25
PROVIDERS: ADMIT Internal Medicine; ATTEND Internal Medicine
DX: R07.89 Other chest pain (principal); R20.2 Paresthesia of skin; I44.7 Left bundle-branch block, unspecified; I11.0 Hypertensive heart disease with heart failure; I50.9 Heart failure, unspecified; R51 Headache; H53.8 Other visual disturbances; R11.2 Nausea with vomiting, unspecified; R94.31 Abnormal electrocardiogram [ECG] [EKG]; J67.9 Hypersensitivity pneumonitis due to unspecified organic dust; J44.9 Chronic obstructive pulmonary disease, unspecified; R18.8 Other ascites; R60.0 Localized edema; Z98.51 Tubal ligation status; Z98.890 Other specified postprocedural states; Z82.49 Family history of ischemic heart disease and other diseases of the circulatory system; Z82.3 Family history of stroke; Z79.899 Other long term (current) drug therapy; Z79.51 Long term (current) use of inhaled steroids; Z86.79 Personal history of other diseases of the circulatory system
CPT/HCPCS: 93005 ×2; 99285; 36415; 82553; 82550; 85025; 80053; 84484; 93971 ×2; 71045; 93010; G0378; A9270 ×5; J2270; J3490; J2405; S0119

== ENCOUNTER 2018-06-05 01:25 | Emergency (ER) | payer OTHER, MEDICARE, MEDICAID ==
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
[2018-06-05 06:45] VITALS: BP 153/82
== END 2018-06-05 06:45 | disposition home or self-care (01) ==
LOC: ER 01:25
DX: S13.9XXA Sprain of joints and ligaments of unspecified parts of neck, initial encounter (principal); M54.2 Cervicalgia; M25.562 Pain in left knee; V49.40XA Driver injured in collision with unspecified motor vehicles in traffic accident, initial encounter; I10 Essential (primary) hypertension; J44.9 Chronic obstructive pulmonary disease, unspecified; Z88.8 Allergy status to other drugs, medicaments and biological substances
CPT/HCPCS: 72050; 99283

== ENCOUNTER 2018-09-19 11:24 | Emergency (ER) | payer MEDICARE, MEDICAID ==
[2018-09-19] MEDS ORDERED: IPRATROPIUM/ALBUTEROL 0.5-2.5 MG/3 ML AMPUL NEB ONE (12:06)
[2018-09-19] MEDS ORDERED: METHYLPREDNISOLONE ACETATE INJ 80 MG/1 ML VIAL IM ONE (12:07)
--- NOTE | 2018-09-19 12:17 | ER Document Report ---
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 Multiple medications were given. Still the cough is persistent therefore present to the ED. She has never been treated with bronchodilators. Denies any fever chills. Denies any other constitutional symptoms] History obtained from [patient] Symptoms began: [past few days] Onset: [gradual] Timing: [constant, lasts hours, persists] Intensity: [moderate] Location: [respiratory tract] Radiation: [none] Migration: [none] Aggravating factors: [none] Relieving factors: [none] Review of Systems : All other systems negative as reviewed. CONSTITUTIONAL No Fever. EYES No eye pain. ENT No sore throat CARDIOVASCULAR No chest pain. RESPIRATORY No SOB, No wheezing, No orthopnea, No pedal edema. GI No abdominal pain, no vomiting, no diarrhea. GENITOURINARY No dysuria. SKIN No rash. NEUROLOGIC No headache. MUSCULOSKELETAL No back pain, No calf pain, No calf swelling Physical Exam CONSTITUTIONAL Vital signs reviewed, Patient has normal respiratory rate, Well appearing, Patient appears comfortable, normal stature. HEAD Atraumatic, Normocephalic. EYES Eyes are normal to inspection. ENT Ears normal to inspection, Nose examination normal. NECK No jugular venous distention. RESPIRATORY CHEST Breath sounds [normal], No respiratory distress. CARDIOVASCULAR RRR, No murmurs, Normal S1 S2, No rub, No gallop. ABDOMEN Abdomen is nontender, No masses, Bowel sounds normal, No distension, No peritoneal signs. BACK Normal inspection. UPPER EXTREMITY Inspection normal. LOWER EXTREMITY Inspection normal. NEURO No facial droop, normal speech. SKIN Skin is warm, Skin is dry, Skin is normal color. PSYCHIATRIC Normal affect. TRAVEL OUTSIDE OF THE [place] IN LAST 30 DAYS: No - HPI Notes: Dictated - Related Data Allergies/Adverse Reactions: enalapril [Enalapril] Allergy (Severe, Verified 09/19/18 11:25) swelling Past Medical History - Social History Smoking Status: Never Smoker Frequency of alcohol use: None Drug Abuse: None Lives with: Family Family History: Reviewed & Not Pertinent, CAD, CVA, DM Patient has suicidal ideation: No Patient has homicidal ideation: No - Past Medical History Cardiac Medical History: Reports: Hx Congestive Heart Failure, Hx Hypercholesterolemia, Hx Hypertension - on meds Denies: Hx Coronary Artery Disease, Hx Heart Attack Pulmonary Medical History: Reports: Hx COPD - hypersensitive pneumonitis/ inhalers Denies: Hx Asthma, Hx Bronchitis, Hx Pneumonia Neurological Medical History: Reports: Hx Migraine. Denies: Hx Cerebrovascular Accident, Hx Seizures Renal/ Medical History: Denies: Hx Peritoneal Dialysis Musculoskeletal Medical History: Denies Hx Arthritis Past Surgical History: Reports: Hx Oral Surgery - wisdom teeth, Hx Tubal Ligation, Other - OPEN LUNG BIOPSY - Immunizations Hx Diphtheria, Pertussis, Tetanus Vaccination: No Hx Pneumococcal Vaccination: 07/20/14 Review of Systems - Review of Systems Notes: Dictated Physical Exam - Vital signs Vitals: Temp Pulse Resp BP Pulse Ox 99.1 F 82 14 131/81 H 97 09/19/18 11:29 09/19/18 11:29 09/19/18 11:29 09/19/18 11:29 09/19/18 11:29 - Notes Notes: Dictated Course - Vital Signs Vital signs: Temp Pulse Resp BP Pulse Ox 99.1 F 82 14 131/81 H 97 09/19/18 11:29 09/19/18 11:29 09/19/18 11:29 09/19/18 11:29 09/19/18 11:29 - Diagnostic Test Radiology reviewed: Reports reviewed - Chest x-ray reported by radiologist as unremarkable Discharge - Discharge Clinical Impression: Asthmatic bronchitis with acute exacerbation Qualifiers: Asthma severity: moderate Asthma persistence: persistent Qualified Code(s): J45.41 - Moderate persistent asthma with (acute) exacerbation Condition: Fair Disposition: HOME, SELF-CARE Instructions: Bronchitis With Bronchospasm (Wheezing) ([facility]) Prescriptions: Albuterol Sulfate [Proair HFA Inhalation Aerosol 8.5 gm MDI] 2 puff IH Q4H PRN # 1 mdi PRN Reason: Azithromycin [Zithromax Tri-Tremaine] 500 mg PO DAILY #1 pkg Fluticasone Propionate [Flovent HFA 220 mcg MDI] 2 puff IH BID #1 mdi Prednisone 10 mg PO ASDIR PRN 6 Days #1 tab.ds.pk PRN Reason: Referrals: SILVIA GARZA MD [Primary Care Provider] - Follow up as needed
--- NOTE | 2018-09-19 13:06 | RADIOLOGY REPORT (SQ) ---
EXAM DESCRIPTION: CHEST 2 VIEWS COMPLETED DATE/TIME: 09/19/2018 12:27 pm REASON FOR STUDY: Cough and shortness of breath COMPARISON: AP CHEST 02/22/2018 EXAM PARAMETERS: NUMBER OF VIEWS: two views TECHNIQUE: Digital Frontal and Lateral radiographic views of the chest acquired. RADIATION DOSE: NA LIMITATIONS: none FINDINGS: LUNGS AND PLEURA: No opacities, masses or pneumothorax. No pleural effusion. MEDIASTINUM AND HILAR STRUCTURES: No masses or contour abnormalities. HEART AND VASCULAR STRUCTURES: Stable mild cardiomegaly. No evidence for failure. BONES: No acute findings. HARDWARE: None in the chest. OTHER: No other significant finding. IMPRESSION: Stable mild cardiomegaly. No acute findings TECHNICAL DOCUMENTATION: JOB ID: [id number] [employer]- All Rights Reserved Reading location - IP/workstation name: [email or web address]
[2018-09-19 15:00] VITALS: BP 132/80
== END 2018-09-19 15:00 | disposition home or self-care (01) ==
LOC: ER 11:24
DX: J45.41 Moderate persistent asthma with (acute) exacerbation (principal); I50.9 Heart failure, unspecified; E78.00 Pure hypercholesterolemia, unspecified; I11.0 Hypertensive heart disease with heart failure; Z98.51 Tubal ligation status
CPT/HCPCS: 94640; 99283; 96372; 71046; J1040; A9270; J7620

== ENCOUNTER 2019-02-07 16:07 | Emergency (ER) | payer MEDICARE, MEDICAID ==
[2019-02-07] MEDS ORDERED: ASPIRIN 81 MG TABLET, CHEWABLE PO ONE (17:09)
--- NOTE | 2019-02-07 17:11 | ER Document Report ---
ED Medical Screen (RME) - General Chief Complaint: Chest Pain Stated Complaint: LEFT LEG SWELLING/CHEST PAIN Time Seen by Provider: 02/07/19 17:05 Primary Care Provider: SILVIA GARZA MD [Primary Care Provider] - Follow up as needed Mode of Arrival: Ambulatory Information source: Patient TRAVEL OUTSIDE OF THE [place] IN LAST 30 DAYS: No - HPI Patient complains to provider of: CP, LEG SWELLING Notes: 02/07/19 17:10 Patient here with complaints of some chest pain with leg swelling. The patient has a history of NH as well as congestive heart failure. She takes Lasix. She states that she feels like her Lasix has not been working as well as she has not been urinating as much as normal. She been having some increasing swelling to the bilateral legs, left worse than right over the last few days. She is also been having some chest pain. She also complains some pain in her right upper back. Exam No distress, nontoxic-appearing. Bilateral pitting edema to the lower extremities left greater than right. Lung sounds normal. Heart sounds normal. Plan CBC, CMP, CPK, CK-MB, troponin, BNP, EKG, chest x-ray. An initial examination was made on the patient as part of the triage process, and it was determined a more comprehensive evaluation was necessary. Initial labs were ordered and patient was transferred to another provider in the ED who assumed care and finished evaluation and plan. - Related Data Allergies/Adverse Reactions: enalapril [Enalapril] Allergy (Severe, Verified 02/07/19 16:08) swelling Past Medical History - Social History Chew tobacco use (# tins/day): No Frequency of alcohol use: None Drug Abuse: None Family history: CAD, CVA - Past Medical History Cardiac Medical History: Reports: Hx Congestive Heart Failure, Hx Hypercholesterolemia, Hx Hypertension - on meds Denies: Hx Coronary Artery Disease, Hx Heart Attack Pulmonary Medical History: Reports: Hx COPD - hypersensitive pneumonitis/inhalers Denies: Hx Asthma, Hx Bronchitis, Hx Pneumonia Neurological Medical History: Reports: Hx Migraine. Denies: Hx Cerebrovascular Accident, Hx Seizures Renal/ Medical History: Denies: Hx Peritoneal Dialysis Musculoskeltal Medical History: Denies Hx Arthritis Past Surgical History: Reports: Hx Oral Surgery - wisdom teeth, Hx Tubal Ligation, Other - OPEN LUNG BIOPSY - Immunizations Hx Diphtheria, Pertussis, Tetanus Vaccination: No History of Influenza Vaccine for 07/2017 - 12/2017 Season: Yes Physical Exam - Vital signs Vitals: Temp Pulse Resp BP Pulse Ox 98.1 F 80 16 149/83 H 98 02/07/19 16:28 02/07/19 16:28 02/07/19 16:28 02/07/19 16:28 02/07/19 16:28 Course - Vital Signs Vital signs: Temp Pulse Resp BP Pulse Ox 98.1 F 80 16 149/83 H 98 02/07/19 16:28 02/07/19 16:28 02/07/19 16:28 02/07/19 16:28 02/07/19 16:28 Doctor's Discharge - Discharge Referrals: SILVIA GARZA MD [Primary Care Provider] - Follow up as needed
--- NOTE | 2019-02-07 17:26 | ER Document Report ---
ED General - General Chief Complaint: Chest Pain Stated Complaint: LEFT LEG SWELLING/CHEST PAIN Time Seen by Provider: 02/07/19 17:05 Primary Care Provider: SILVIA GARZA MD [NO LOCAL MD] - Follow up as needed Mode of Arrival: Ambulatory Notes: 53-year-old female presents emergency department chief complaint of chest pain and bilateral lower extremity leg swelling. Patient has a history of a SD as well as CHF. She is on Lasix 80 mg daily in the morning. Patient states that it is more of a pressure in her chest making it difficult for her to breathe she thinks due to volume overload. She has not been urinating as much as she usually does. She states is taking a good 4 to 5 hours for her to start responding to her Lasix and she has been urinating less. She denies any mental status changes, dizziness, lightheadedness, headache, complains of shortness of breath, complains of chest pressure, denies nausea or vomiting, complains of lower extremity swelling left worse than right. Of note, she was seen here last year and had a similar presentation with her left leg swollen more than her right, a venous Doppler was done which was negative for DVT. TRAVEL OUTSIDE OF THE [place] IN LAST 30 DAYS: No - Related Data Allergies/Adverse Reactions: enalapril [Enalapril] Allergy (Severe, Verified 02/07/19 16:08) swelling Past Medical History - General Information source: Patient - Social History Smoking Status: Unknown if Ever Smoked Chew tobacco use (# tins/day): No Frequency of alcohol use: None Drug Abuse: None Family History: Reviewed & Not Pertinent, CAD, CVA, DM Patient has suicidal ideation: No Patient has homicidal ideation: No - Past Medical History Cardiac Medical History: Reports: Hx Congestive Heart Failure, Hx Hypercholesterolemia, Hx Hypertension - on meds Denies: Hx Coronary Artery Disease, Hx Heart Attack Pulmonary Medical History: Reports: Hx COPD - hypersensitive pneumonitis/inhalers Denies: Hx Asthma, Hx Bronchitis, Hx Pneumonia Neurological Medical History: Reports: Hx Migraine. Denies: Hx Cerebrovascular Accident, Hx Seizures Renal/ Medical History: Denies: Hx Peritoneal Dialysis Musculoskeletal Medical History: Denies Hx Arthritis Past Surgical History: Reports: Hx Oral Surgery - wisdom teeth, Hx Tubal Ligation, Other - OPEN LUNG BIOPSY - Immunizations Hx Diphtheria, Pertussis, Tetanus Vaccination: No Hx Pneumococcal Vaccination: 07/20/14 Review of Systems - Review of Systems Constitutional: See HPI Cardiovascular: See HPI Respiratory: See HPI Gastrointestinal: See HPI Neurological/Psychological: See HPI Physical Exam - Vital signs Vitals: Temp Pulse Resp BP Pulse Ox 98.1 F 80 16 149/83 H 98 02/07/19 16:28 02/07/19 16:28 02/07/19 16:28 02/07/19 16:28 02/07/19 16:28 - Notes Notes: PHYSICAL EXAMINATION: Reviewed vital signs and charting by RN GENERAL: Alert, interacts well. No acute distress. HEAD: Normocephalic, atraumatic. EYES: Pupils equal and round. Extraocular movements intact. ENT: Oral mucosa moist, tongue midline. NECK: Full range of motion. Supple. Trachea midline. LUNGS: Clear to auscultation bilaterally, no wheezes, rales, or rhonchi. No respiratory distress. HEART: Regular rate and rhythm. No murmur ABDOMEN: soft, non-tender. Non-distended. Bowel sounds present. no McBurney's point tenderness, no Arias sign. EXTREMITIES: Moves all 4 extremities spontaneously. 3+ pitting edema bilateral lower extremities left slightly worse than right. No cyanosis. Normal distal neurovascular exam BACK: No CVAT NEUROLOGIC: Oriented and appropriate. Normal speech. PSYCH: Normal affect, normal mood. SKIN: Warm, dry, normal turgor. No rashes or lesions noted. Course - Re-evaluation Re-evalutation: 02/07/19 17:58 Overall well-appearing and not in acute respiratory distress. Lungs are clear. We will give Lasix IV. Lab work drawn and pending chest x-ray complete pending read. 02/07/19 18:[address] Shai Malloy, will give her Bumex 1 mg and have her follow-up with her primary care physician next week to adjust her diuretic therapy. Vital signs are all within normal limits, patient is not tachypneic or in any respiratory distress, afebrile and she is stable for discharge. - Vital Signs Vital signs: Temp Pulse Resp BP Pulse Ox 98.1 F 80 16 149/83 H 99 02/07/19 16:28 02/07/19 16:28 02/07/19 16:28 02/07/19 16:28 02/07/19 17:32 - Laboratory Result Diagrams: 02/07/19 17:03 02/07/19 17:03 Laboratory results interpreted by me: 02/07/19 02/07/19 17:03 17:03 Eosinophils % 6.5 H Carbon Dioxide 31 H Discharge - Discharge Clinical Impression: Swelling of both lower extremities, Shortness of breath Condition: Good Disposition: HOME, SELF-CARE Additional Instructions: You were seen in the emergency department this evening for bilateral leg swelling and for shortness of breath. We gave you a large dose of a different type of diuretic that will help you P. It is important that you follow-up with your primary care provider early next week to discuss your current diuretic therapy and make adjustments as necessary. All of your lab work was within normal limits and very reassuring. Please purchase some compression stockings and make sure you elevate your legs to help promote fluid resorption. If you develop severe chest pain, acute respiratory distress, cough up blood, passout, or have any other concerning symptoms please immediately return to the emergency department. Referrals: SILVIA GARZA MD [NO LOCAL MD] - Follow up as needed
[2019-02-07 17:35] LABS: ABSOLUTE EOSINOPHILS # (AUTO) 0.4 10^3/uL (0.0-0.6); ABSOLUTE MONOCYTES (AUTO) 0.6 10^3/uL (0.1-1.4); ABSOLUTE NEUT (AUTO) 3.1 10^3/uL (1.7-8.2); BASOPHILS % (AUTO) 0.7 % (0-2); EOSINOPHILS % (AUTO) 6.5 % (0-6); HEMATOCRIT 37.9 % (36.0-47.0); HEMOGLOBIN 12.2 g/dL (12.0-15.5); LYMPHOCYTES % (AUTO) 32.3 % (13-45); MEAN CORPUSCULAR HEMOGLOBIN 28.4 pg (27.0-33.4); MEAN CORPUSCULAR HGB CONC 32.3 g/dL (32.0-36.0); MEAN CORPUSCULAR VOLUME 88 fl (80-97); MONOCYTES % (AUTO) 10.1 % (3-13); PLATELET COUNT 298 10^3/uL (150-450); RED CELL DISTRIBUTION WIDTH 13.7 % (11.5-14.0); SEGMENTED NEUTROPHILS % (AUTO) 50.4 % (42-78); TOTAL CELLS COUNTED % (AUTO) 100 %; WHITE BLOOD COUNT 6.2 10^3/uL (4.0-10.5)
[2019-02-07 17:51] LABS: ALANINE AMINOTRANSFERASE 21 U/L (9-52); ALBUMIN 3.6 g/dL (3.5-5.0); ALKALINE PHOSPHATASE 106 U/L (38-126); ANION GAP 7 (5-19); ASPARTATE AMINO TRANSFERASE 20 U/L (14-36); BILIRUBIN,DIRECT 0.2 mg/dL (0.0-0.4); BILIRUBIN,TOTAL 0.4 mg/dL (0.2-1.3); BLOOD UREA NITROGEN 13 mg/dL (7-20); CALCIUM 9.3 mg/dL (8.4-10.2); CARBON DIOXIDE 31 mmol/L (22-30); CHLORIDE 104 mmol/L (98-107); CREATINE KINASE 56 U/L (30-135); GLUCOSE 90 mg/dL (75-110); POTASSIUM 3.7 mmol/L (3.6-5.0); SODIUM 142.1 mmol/L (137-145); TOTAL PROTEIN 7.2 g/dL (6.3-8.2)
--- NOTE | 2019-02-07 17:58 | RADIOLOGY REPORT (SQ) ---
EXAM DESCRIPTION: CHEST SINGLE VIEW COMPLETED DATE/TIME: 02/07/2019 5:41 pm REASON FOR STUDY: CP, LEG SWELLING COMPARISON: 09/19/2018 TECHNIQUE: Single frontal radiographic view of the chest acquired. NUMBER OF VIEWS: One view. LIMITATIONS: None. FINDINGS: LUNGS AND PLEURA: No pneumothorax. No consolidation or pleural effusion. MEDIASTINUM AND HILAR STRUCTURES: Stable. HEART AND VASCULAR STRUCTURES: Stable. BONES: No acute findings. HARDWARE: None in the chest. OTHER: No other significant finding. IMPRESSION: NO ACUTE FINDINGS. TECHNICAL DOCUMENTATION: JOB ID: [id number] [place]-72 2010 [employer]- All Rights Reserved Reading location - IP/workstation name: [email or web address]
[2019-02-07 18:03] LABS: CREATINE KINASE MB 0.47 ng/mL (<4.55); NT PRO BNP 30 pg/mL (5-900)
[2019-02-07 18:04] LABS: TROPONIN I < 0.012 ng/mL
[2019-02-07] MEDS ORDERED: FUROSEMIDE INJ/PF 40 MG/4 ML SDV IV ONE (18:18)
[2019-02-07] MEDS ORDERED: BUMETANIDE INJ/PF 1 MG/4 ML SDV IV ONE (18:23)
[2019-02-07 18:58] VITALS: BP 153/98
--- NOTE | 2019-02-07 22:57 | EKG REPORT ---
SEVERITY:- ABNORMAL ECG - SINUS RHYTHM PROBABLE LEFT ATRIAL ABNORMALITY LEFT BUNDLE BRANCH BLOCK : Confirmed by: Jay Burkett 07-Feb-2019 22:56:39
== END 2019-02-07 19:02 | disposition home or self-care (01) ==
LOC: ER 16:07
DX: I11.0 Hypertensive heart disease with heart failure (principal); I50.9 Heart failure, unspecified; R60.0 Localized edema; Z79.899 Other long term (current) drug therapy; J44.9 Chronic obstructive pulmonary disease, unspecified; I25.2 Old myocardial infarction; R07.89 Other chest pain; R06.02 Shortness of breath; Z88.8 Allergy status to other drugs, medicaments and biological substances
CPT/HCPCS: 93005; 99284; 96374; 36415; 82553; 82550; 85025; 80053; 84484; 83880; 71045; 93010; A9270; J3490

== ENCOUNTER 2019-12-16 10:40 | Emergency (ER) | payer MEDICARE, MEDICAID ==
[2019-12-16 11:03] VITALS: BP 151/96
[2019-12-16] MEDS ORDERED: KETOROLAC TROMETHAMINE 60 MG/2 ML SDV IM ONE (11:34)
--- NOTE | 2019-12-16 11:38 | ER Document Report ---
HPI - HPI Patient complains to provider of: dental pain Time Seen by Provider: 12/16/19 11:28 Onset: Last week Onset/Duration: Persistent Quality of pain: Throbbing Context: 54-year-old female presents emergency department with left upper dental pain. Reports she had a tooth pulled by her dentist last week. She reports started having pain immediately afterwards. She did follow back up with him on Saturday. He placed her on antibiotics and packed the site. She reports she still having pain. Denies fever vomiting diarrhea. Reports she does not smoke and she has not used a straw. Associated Symptoms: None Exacerbated by: Denies Relieved by: Denies Similar symptoms previously: Yes Recently seen / treated by doctor: Yes - REPRODUCTIVE Reproductive: DENIES: : Past Medical History - General Information source: Patient - Social History Smoking Status: Unknown if Ever Smoked Frequency of alcohol use: None Drug Abuse: None Family History: Reviewed & Not Pertinent, CAD, CVA, DM Patient has suicidal ideation: No Patient has homicidal ideation: No - Past Medical History Cardiac Medical History: Reports: Hx Congestive Heart Failure, Hx Hyperch olesterolemia, Hx Hypertension - on meds Denies: Hx Coronary Artery Disease, Hx Heart Attack Pulmonary Medical History: Reports: Hx COPD - hypersensitive pneumonitis/inhalers Denies: Hx Asthma, Hx Bronchitis, Hx Pneumonia Neurological Medical History: Reports: Hx Migraine. Denies: Hx Cerebrovascular Accident, Hx Seizures Renal/ Medical History: Denies: Hx Peritoneal Dialysis Musculoskeletal Medical History: Denies Hx Arthritis Past Surgical History: Reports: Hx Oral Surgery - wisdom teeth, Hx Tubal Ligation, Other - OPEN LUNG BIOPSY - Immunizations Hx Diphtheria, Pertussis, Tetanus Vaccination: No Hx Pneumococcal Vaccination: 07/20/14 Vertical Provider Document - CONSTITUTIONAL Agree With Documented VS: Yes Exam Limitations: No Limitations General Appearance: WD/WN, No Apparent Distress - INFECTION CONTROL TRAVEL OUTSIDE OF THE [place] IN LAST 30 DAYS: No - HEENT HEENT: Atraumatic, Normal ENT Exam, Normocephalic. negative: Conjuctival Injection, Pharyngeal Erythema, Tympanic Membrane Red, Tympanic Membrane Bulging Mouth Diagram: 1 - tooth missing, no erythema, no swelling, no obvious infection, opens her mouth wide no trismus, pt c/o pain with palpation to her cheek area around the tooth, no swelling/erythema/warmth - NECK Neck: Normal Inspection, Supple. negative: Lymphadenopathy-Left, Lymphadenopathy-Right - RESPIRATORY Respiratory: Breath Sounds Normal, No Respiratory Distress - CARDIOVASCULAR Cardiovascular: Regular Rate, Regular Rhythm - MUSCULOSKELETAL/EXTREMETIES Musculoskeletal/Extremeties: KEITH MAYER - NEURO Level of Consciousness: Awake, Alert, Appropriate Motor/Sensory: No Motor Deficit - DERM Integumentary: Warm, Dry Course - Re-evaluation Re-evalutation: 12/16/19 11:45 34-year-old female presents with pain post dental extraction. Patient is tender with palpation to the site but no signs of infection are noticed no erythema no swelling discharge. Patient has a clear voice opens mouth wide. Patient did follow-up with her dentist yesterday and was placed on amoxicillin. She also reports she has been taking Tylenol for the pain. She reports is not helping. patient was instructed on Toradol for pain. Also instructed to follow back up with her dentist for recheck. - Vital Signs Vital signs: Temp Pulse Resp BP Pulse Ox 98.2 F 71 16 151/96 H 98 12/16/19 11:02 12/16/19 11:02 12/16/19 11:02 12/16/19 11:02 12/16/19 11:02 Discharge - Discharge Clinical Impression: pain post tooth extraction Condition: Stable Disposition: HOME, SELF-CARE Instructions: Use of [id number] Ibuprofen ([facility]), Toradol Injection ([facility]) Additional Instructions: *You have been evaluated for pain post dental extraction *Continue to take the antibiotics your dentist has prescribed *Take ibuprofen or Tylenol as indicated for pain *Follow up with your dentist today for an appointment for recheck. *Return to ED for worsening condition, changes, needs, fever, concerns Monitor your blood pressure. Your blood pressure was elevated today. This may be because you were anxious, in pain or because you need medication. It is important to follow up with your primary care provider for full evaluation. Forms: Elevated Blood Pressure
== END 2019-12-16 11:43 | disposition home or self-care (01) ==
LOC: ER 10:40
DX: G89.18 Other acute postprocedural pain (principal); K08.9 Disorder of teeth and supporting structures, unspecified; I50.9 Heart failure, unspecified; I11.0 Hypertensive heart disease with heart failure; E78.00 Pure hypercholesterolemia, unspecified; Z98.51 Tubal ligation status
CPT/HCPCS: 99282; 96372; J1885